=== PATIENT | male | born 1945 | race Caucasian/White ===

== ENCOUNTER 2018-01-13 20:23 | Inpatient (IN) ==
--- NOTE | 2018-01-13 20:42 | Emergency Department Note ---
Disposition Clinical Impression: Confusion Syncope Qualifiers: Syncope type: unspecified Qualified Code(s): R55 - Syncope and collapse Fall Qualifiers: Encounter type: initial encounter Qualified Code(s): W19.XXXA - Unspecified fall, initial encounter Disposition: Admitted As Inpatient Condition: Fair General Adult HPI - General Chief complaint: ED Fall Stated complaint: fall/light headed Time Seen by Provider: 01/13/18 20:36 Source: patient, EMS Nursing Notes Reviewed: Yes Vital Signs Reviewed: Yes - History of Present Illness HPI Narrative: 72-year-old male present emergency department after having syncopal episode at home. The patient's stated reported to EMS that her was acting confused today right before this happened. Patient states he does not remember what happened at all. It was reported that patient hit his head. Patient denies any cough, fevers, chest pain, palpitations. Daughter is at bedside here in the emergency department and states that patient is not at baseline mental status. Pain Scale: 0 - Related Data Home Medications Medication Instructions Recorded Confirmed Aspirin [Lo-Dose Aspirin EC] 81 mg PO DAILY 01/13/18 01/13/18 Latanoprost [Xalatan] 1 drop BOTH EYES HS 01/13/18 01/13/18 Lisinopril-HCTZ 20-12.5 [Prinzide 1 tab PO DAILY 01/13/18 01/13/18 20-12.5] Naproxen Sodium [All Day Pain 220 mg PO DAILY 01/13/18 01/13/18 Relief] Omeprazole [PriLOSEC] 40 mg PO DAILY 01/13/18 01/13/18 Simvastatin [Zocor] 60 mg PO QPM 01/13/18 01/13/18 Triamcinolone Acetonide 1 appl TP BID PRN 01/13/18 01/13/18 Allergies Allergy/AdvReac Type Severity Reaction Status Date / Time No Known Allergies Allergy Verified 01/13/18 20:27 All systems ED: reviewed and negative except as stated. Review of Systems: As Per HPI Constitutional: Denies: fever Cardiovascular: Reports: syncope. Denies: chest pain, palpitations Respiratory: Denies: cough, dyspnea Gastrointestinal: Denies: abdominal pain, nausea, vomiting Genitourinary: Denies: urgency Musculoskeletal: Denies: back pain, neck pain Integumentary: Reports: abrasion Neurological: Reports: confusion. Denies: headache, weakness, numbness, paresthesias Past Medical History - Past Medical History Medical history: Reports: diabetes Psychiatric history: Reports: no psych history - Social History Smoking Status: Current every day smoker Smokeless Tobacco Status: No Alcohol use: Reports: heavy Drug use: Reports: none Physical Exam - General General appearance: alert, other (Patient appears mildly confused.) - Head Head exam: other (Patient has scattered abrasions on the face and forehead) - Eye Eye exam: Present: EOMI - ENT ENT exam: normal exam - Neck Neck exam: Present: trachea midline. Absent: tenderness - Chest Chest inspection: Present: symmetric chest wall rise - Respiratory Respiratory exam: Present: normal lung sounds bilaterally. Absent: respiratory distress, wheezes, stridor - Cardiovascular Cardiovascular exam: Present: regular rate, normal rhythm - Abdominal Exam Abdominal exam: Present: soft, Non-Tender. Absent: distention, guarding, rebound - Extremities Exam Extremities exam: Absent: tenderness - Back Exam Back exam: Present: full ROM. Absent: tenderness - Neurological Exam Neurological exam: Present: alert, CN II-XII intact - Psychiatric Psychiatric exam: Present: normal affect, normal mood - Skin Skin exam: Present: warm. Absent: pallor Course Vital Signs Temperature 98.7 F 01/13/18 20:28 Pulse Rate 86 01/13/18 20:28 Respiratory Rate 16 01/13/18 20:28 Blood Pressure 154/87 01/13/18 20:28 O2 Sat by Pulse Oximetry 98 01/13/18 20:28 Temperature 98.1 F 01/14/18 03:23 Pulse Rate 78 01/14/18 03:23 Respiratory Rate 14 01/14/18 03:23 Blood Pressure 134/70 01/14/18 03:23 O2 Sat by Pulse Oximetry 94 01/14/18 03:23 Oxygen Delivery Oxygen Delivery Room Air Medical Decision Making - MDM Narrative Medical decision making narrative: 72-year-old male presents to the emergency department with syncope in the setting of confusion. Patient fell and hit his head earlier today. Obtained EKG, chest x-ray. EKG does not reveal any evidence of STEMI, Brugada's, [id number]. chest x-ray reveals evidence of bilateral lower lobe airspace disease consistent with atelectasis and chronic appearing interstitial opacities. Due to the patient having a syncopal episode, we obtained a CT angiogram of the chest that was negative for pulmonary embolus. It did reveal bilateral air space disease. Patient had mildly elevated creatinine at 1.38. We do not have a previous creatinine on him. We administered a liter of fluid to help with this. Urine was negative for signs of infection. CT of the head was obtained as patient had fallen. This was negative for signs of hemorrhage. Patient was hemodynamic was stable throughout his stay here. We admitted him to the hospital as patient was not quite baseline according to daughter at bedside. We do not have a true etiology for his confusion and why the patient had a syncopal episode today. Chest X-Ray 01/13/18 20:39 IMPRESSION: 1. No acute process identified. 2. Chronic appearing interstitial opacities present throughout the lungs. D/ / Frank Fregoso MD / Frank Fregoso MD Interpreting Provider: Frank Fregoso MD Head CT 01/13/18 20:40 IMPRESSION: No acute intracranial abnormality. D/ / Roly Phillips MD / Roly Phillips MD Interpreting Provider: Roly Phillips MD Chest CTA 01/13/18 21:24 IMPRESSION: No CT evidence of pulmonary embolism. Emphysema. Mild bilateral lower lobe dependent airspace disease, likely atelectasis. Pneumonia is considered less likely. D/ / Lucia Leblanc Cha, MD / Lucia Leblanc Cha, MD Interpreting Provider: Lucia Leblanc Cha, MD Vital Signs Temperature 98.7 F 01/13/18 20:28 Pulse Rate 86 01/13/18 20:28 Respiratory Rate 16 01/13/18 20:28 Blood Pressure 154/87 01/13/18 20:28 O2 Sat by Pulse Oximetry 98 01/13/18 20:28 Temperature 98.7 F 01/13/18 20:28 Pulse Rate 83 01/13/18 22:45 Respiratory Rate 20 01/13/18 22:45 Blood Pressure 136/82 01/13/18 22:45 O2 Sat by Pulse Oximetry 94 01/13/18 22:45 Oxygen Delivery Oxygen Delivery Room Air - Lab Data Result diagrams: 01/14/18 01:29 01/14/18 01:29 Lab Results 01/13/18 01/13/18 01/13/18 Range/Units 20:39 20:39 20:39 WBC 9.5 (4.3-11.1) K/mcL RBC 4.08 L (4.19-5.50) M/mcL Hgb 13.2 (12.9-16.9) g/dL Hct 38.9 (37.5-50.1) % MCV 95.3 (83.0-100.0) fL MCH 32.4 (28.0-33.3) pg MCHC 33.9 (31.6-35.5) g/dL RDW 13.2 (11.5-14.5) % Plt Count 288 (140-400) K/mcL MPV 9.4 (9.4-12.4) fL Immature Gran % 0.5 (0-4) % Seg Neutrophils % 66.5 % Lymphocytes % 22.4 % Monocytes % 8.6 % Eosinophils % 1.4 % Basophils % 0.6 % Neutrophils # 6.3 (1.6-8.9) K/mcL Lymphocytes # 2.1 (0.6-4.6) K/mcL Monocytes # 0.8 (0.0-1.3) K/mcL Eosinophils # 0.1 (0.0-0.6) K/mcL Basophils # 0.1 (0.0-0.2) K/mcL D-Dimer (0-500) ng/mLFEU Sodium 137 (136-145) mEq/L Potassium 4.0 (3.5-5.1) mEq/L Chloride 105 (98-107) mEq/L Carbon Dioxide 23 (23-29) mEq/L BUN 20 (8-23) mg/dL Creatinine 1.37 H (0.70-1.30) mg/dL Est GFR ( Amer) > 60 (> 60) Est GFR (Non-Af Amer) 51 L (> 60) BUN/Creatinine Ratio 15 (6-26) Glucose 165 H (70-105) mg/dL Calculated Osmolality 290 (280-300) Calcium 9.5 (8.6-10.3) mg/dL Troponin I < 0.03 (< 0.04) ng/mL B-Natriuretic Peptide 51 (Less than 100) pg/mL Urine Color (Yellow) Urine Clarity (Clear) Urine pH (5.0-8.0) pH Units Ur Specific Ulysses (1.010-1.025) Urine Protein (Neg-Trace) mg/dL Urine Glucose (UA) (Normal) mg/dL Urine Ketones (Negative) mg/dL Urine Blood (Negative) Urine Nitrite (Negative) Urine Bilirubin (Negative) Urine Urobilinogen (Normal) mg/dL Ur Leukocyte Esterase (Negative) Urine Microscopic RBC (0-3) per hpf Urine Microscopic WBC (0-3) per hpf Ur Squamous Epith Cells (None-Few) per lpf Urine Bacteria (None-Few) per hpf Hyaline Casts (None-Few) per lpf Ur Culture Indicated? (NO) 01/13/18 01/13/18 Range/Units 20:42 21:12 WBC (4.3-11.1) K/mcL RBC (4.19-5.50) M/mcL Hgb (12.9-16.9) g/dL Hct (37.5-50.1) % MCV (83.0-100.0) fL MCH (28.0-33.3) pg MCHC (31.6-35.5) g/dL RDW (11.5-14.5) % Plt Count (140-400) K/mcL MPV (9.4-12.4) fL Immature Gran % (0-4) % Seg Neutrophils % % Lymphocytes % % Monocytes % % Eosinophils % % Basophils % % Neutrophils # (1.6-8.9) K/mcL Lymphocytes # (0.6-4.6) K/mcL Monocytes # (0.0-1.3) K/mcL Eosinophils # (0.0-0.6) K/mcL Basophils # (0.0-0.2) K/mcL D-Dimer 3624 H (0-500) ng/mLFEU Sodium (136-145) mEq/L Potassium (3.5-5.1) mEq/L Chloride (98-107) mEq/L Carbon Dioxide (23-29) mEq/L BUN (8-23) mg/dL Creatinine (0.70-1.30) mg/dL Est GFR ( Amer) (> 60) Est GFR (Non-Af Amer) (> 60) BUN/Creatinine Ratio (6-26) Glucose (70-105) mg/dL Calculated Osmolality (280-300) Calcium (8.6-10.3) mg/dL Troponin I (< 0.04) ng/mL B-Natriuretic Peptide (Less than 100) pg/mL Urine Color Yellow (Yellow) Urine Clarity Clear (Clear) Urine pH 6.5 (5.0-8.0) pH Units Ur Specific [place]es 1.011 (1.010-1.025) Urine Protein Trace (Neg-Trace) mg/dL Urine Glucose (UA) Normal (Normal) mg/dL Urine Ketones Negative (Negative) mg/dL Urine Blood Negative (Negative) Urine Nitrite Negative (Negative) Urine Bilirubin Negative (Negative) Urine Urobilinogen Normal (Normal) mg/dL Ur Leukocyte Esterase Negative (Negative) Urine Microscopic RBC 0-3 (0-3) per hpf Urine Microscopic WBC 0-3 (0-3) per hpf Ur Squamous Epith Cells None Seen (None-Few) per lpf Urine Bacteria None Seen (None-Few) per hpf Hyaline Casts None Seen (None-Few) per lpf Ur Culture Indicated? NO (NO) Attestation Statement - Attestation Attestation: I examined this patient and my medical decision-making was reviewed with the Resident Physician. I agree with the documented findings, disposition and treatment plan as described except to the extent set forth below. Patient had syncope, lightheadedness. CT scan of the head as well as the chest shows no acute findings. No metabolic derangement identified. The patient does have some transient confusion we will admit for further management of confusion in the setting of syncope.
[2018-01-13 20:56] LABS: Basophils # 0.1 K/mcL (0.0-0.2); Basophils % 0.6 %; Eosinophils # 0.1 K/mcL (0.0-0.6); Eosinophils % 1.4 %; Hematocrit 38.9 % (37.5-50.1); Hemoglobin 13.2 g/dL (12.9-16.9); Immature Granulocytes % 0.5 % (0-4); Lymphocytes # 2.1 K/mcL (0.6-4.6); Lymphocytes % 22.4 %; Mean Corpuscular HGB Conc 33.9 g/dL (31.6-35.5); Mean Corpuscular Hemoglobin 32.4 pg (28.0-33.3); Mean Corpuscular Volume 95.3 fL (83.0-100.0); Mean Platelet Volume 9.4 fL (9.4-12.4); Monocytes # 0.8 K/mcL (0.0-1.3); Monocytes % 8.6 %; Neutrophils # 6.3 K/mcL (1.6-8.9); Platelet Count 288 K/mcL (140-400); Red Blood Count 4.08 M/mcL (4.19-5.50); Red Cell Distribution Width 13.2 % (11.5-14.5); Segmented Neutrophils % 66.5 %
[2018-01-13 21:17] LABS: BUN/Creatinine Ratio 15 (6-26); Blood Urea Nitrogen 20 mg/dL (8-23); Calcium 9.5 mg/dL (8.6-10.3); Carbon Dioxide 23 mEq/L (23-29); Chloride 105 mEq/L (98-107); Glucose 165 mg/dL (70-105); Osmolality,Calculated 290 (280-300); Sodium 137 mEq/L (136-145); Troponin I < 0.03 ng/mL (< 0.04); eGFR For African Americans > 60 (> 60); eGFR For Non-African Americans 51 (> 60)
[2018-01-13 21:23] LABS: Bilirubin,Urine Negative (Negative); Blood,Urine Negative (Negative); Clarity,Urine Clear (Clear); Color,Urine Yellow (Yellow); Glucose,Urine (UA) Normal (Normal); Ketones,Urine Negative (Negative); Leukocyte Esterase,Urine Negative (Negative); Nitrite,Urine Negative (Negative); PH,Urine 6.5 pH Units (5.0-8.0); Protein,Urine Trace mg/dL (Neg-Trace); Specific Gravity,Urine 1.011 (1.010-1.025); Urobilinogen,Urine Normal (Normal)
[2018-01-13] MEDS ORDERED: Isovue-370 500 ML INFUS..BTL IV ONE (21:24)
[2018-01-13 21:25] LABS: Bacteria,Urine None Seen per hpf (None-Few); Hyaline Casts,Urine None Seen per lpf (None-Few); RBC,Urine 0-3 per hpf (0-3); Squamous Epithelial Cell,Urine None Seen per lpf (None-Few); WBC,Urine 0-3 per hpf (0-3)
[2018-01-13] MEDS ORDERED: 0.9 % Sodium Chloride 1,000 ML IVC ONE (23:24)
--- NOTE | 2018-01-14 01:00 | Internal Med History&Physical ---
<Yaw Ac - Last Filed: 01/14/18 01:38> Date of Encounter: 01/14/18 Time of Encounter: 00:58 Internal Medicine - H&P: HPI Chief complaint: fall Admitted From: Home Plans for Post Hospital Care: Home History of present illness: Mr. Deluca is a 72 year old male w/ pmh of htn, hld, GERD, smoker, light etoh use presents confusion, LOC, and trauma to the head. Patient had 2 episodes today where he stood up, walked to the kitchen, became dizzy, LoC, and fell. Unknown how long patient loc. Patient hit his face on one of the falls. Patient has never had episodes like this in the past. He does not remember fully what occurred prior or post fall. He did not bite his tongue or lose urine control. He does admit to feeling more confused recently and for the last 2 years patient has had SOB on exertion which has been progressing. Patient has not been seen by a physician for this workup. Patient also admits to trouble urinating. He feels urges to urinate but can't always urinate, and sometimes dribbles urine. Patient denies blood or darkening of stool, nausea, vomiting, chest pain, orthopnea, pnd, edema, fever, chills. patient does admit to blurry vision intermittently throughtout the day. Past Med Surg Social Fam HX - Past Medical History Medical history: diabetes, hyperlipidemia, hypertension Psychiatric history: no psych history - Social History Smoking Status: Current every day smoker Packs per day: 1/2 Smokeless Tobacco Status: No Alcohol use: heavy Drug use: none - Family History Daughter Name: Zoë Family Member Ethnicity: Non- Living Status: Still Living Hx Family Cardiac Disorders: No Hx Family Respiratory Disorders: No Hx Family Cancer: No Hx Family GI Disorders: No Hx Family Genitourinary Disorders: No Hx Family Endocrine Disorder: No Hx Family Musculoskeletal Disorders: No Hx Family Neuromuscular Disorders: No Hx Family Neurologic Disorders: No Hx Family HEENT Disorders: No Hx Family Autoimmune Disorders: No Hx Family Reproductive Disorders: No Hx Family Psychosocial Disorders: No Hx Family Medical Disorders: No Internal Medicine - H&P: Meds Aspirin [Lo-Dose Aspirin EC] 81 mg PO DAILY 01/13/18 [History] Latanoprost [Xalatan] 1 drop BOTH EYES HS 01/13/18 [History] Lisinopril-HCTZ 20-12.5 [Prinzide 20-12.5] 1 tab PO DAILY 01/13/18 [History] Naproxen Sodium [All Day Pain Relief] 220 mg PO DAILY 01/13/18 [History] Omeprazole [PriLOSEC] 40 mg PO DAILY 01/13/18 [History] Simvastatin [Zocor] 60 mg PO QPM 01/13/18 [History] Triamcinolone Acetonide 1 appl TP BID PRN 01/13/18 [History] 3 Allergy/AdvReac Type Severity Reaction Status Date / Time No Known Allergies Allergy Verified 01/13/18 20:27 All Systems PM: A 10-system review of systems was performed and is negative for pertinent findings except as documented above in the HPI. - Constitutional Constitutional: falls, weakness, no anorexia, no chills, no excessive sweating, no fatigue, no fever(s), no lethargy, no malaise, no night sweats - EENT Eyes: blurry vision, no change in vision, no discharge, no pain, no photophobia Ears: no ear discharge, no ear pain, no tinnitus Nose, mouth and throat: no dysphagia, no nasal discharge, no neck pain, no sore throat - Cardiovascular Cardiovascular ROS IM: dyspnea on exertion, no chest pain, no claudication, no diaphoresis, no dyspnea, no edema, no irregular heart rhythm, no lightheadedness , no orthopnea, no palpitations, no paroxysmal nocturnal dyspnea, no syncope - Respiratory Respiratory: no cough, no dyspnea, no wheezing, no excessive phlegm production - Gastrointestinal Gastrointestinal: no abdominal pain, no change in bowel habits, no coffee ground emesis, no constipation, no cramping, no diarrhea, no dyspepsia, no dysphagia, no early satiety, no excessive flatus, no fecal incontinence, no hematemesis, no hematochezia, no melena, no nausea, no vomiting - Genitourinary Genitourinary ROS male: dysuria, post void dribbling, urinary urgency, no flank pain, no hematuria, no nocturia, no penile discharge, no urinary frequency - Musculoskeletal Musculoskeletal ROS IM: no numbness, no tingling - Integumentary Integumentary IM: no rash, no unusual bruising - Neurological Neurological ROS: disequilibrium, dizziness, lack of coordination, weakness, no confusion, no convulsions, no focal weakness, no frequent falls, no headache(s) , no numbness, no tingling, no tremor(s) - Hematologic/Lymphatic Hematologic/Lymphatic: no easy bruising - Constitutional Vitals: Temp Pulse Resp BP Pulse Ox 98.7 F 83 12 156/94 94 01/13/18 20:28 01/13/18 22:45 01/14/18 00:20 01/14/18 00:20 01/13/18 22:45 General appearance: Present: cooperative, A&O X 3, pleasant, no acute distress, answers questions appropriately - Head Head exam: Present: atraumatic, normocephalic - Eye Eye exam: Present: PERRL, conjuntiva pink, sclera anicteric Pupils: Present: PERRL - Neck Neck exam general surgery: Present: supple, trachea midline. Absent: lymphadenopathy, nuchal rigidity, thyromegaly - Respiratory Respiratory exam: Present: decreased breath sounds. Absent: accessory muscle use, chest wall tenderness, rales, rhonchi, wheezes - Cardiovascular Cardiovascular exam: Present: RRR. Absent: diastolic murmur, gallop, irregular rhythm, JVD, rubs, +S3, systolic murmur, tachycardia - GI/Abdominal GI/Abdominal exam: Present: normal bowel sounds, soft, no peritoneal signs. Absent: distended, firm, guarding, rebound, rigid, splenomegaly, tenderness - Extremities Exam Extremities exam: Present: warm, radial pulses palpable and symmetrical. Absent : calf tenderness, cyanotic, pedal edema - Neurological Exam Neurological exam: Present: alert, CN II-XII intact, oriented X3, reflexes normal, no focal deficits, strengths equal and symetr throughout. Absent: altered, motor sensory deficit, pronater drift, facial droop, speech deficit - Skin Skin exam: Present: dry, intact Internal Med - H&P Results - Labs CBC & Chem 7: 01/13/18 20:39 01/13/18 20:39 - Assessment and plan (1) SOB (shortness of breath) on exertion Current Visit: Yes Status: Acute Assessment and plan: chronic, SOB on exertion for the last 2 years. Patient to have follow up PFT outpatient. - respiratory support as needed. - continuous pulse O2 (2) Dysuria Current Visit: Yes Status: Acute Assessment and plan: Patient has hx of dysuria. - strict I/O - low threshold for schwartz cath placement - consider urology consult (3) Confusion Current Visit: Yes Status: Acute Assessment and plan: Patient could not recall events of fall, unsure if patient lost consciousness. In ED, patient had CTA negative for PE, Head CT negative for brain hemorrhage, and CXR that showed no acute processes. - orthostatics - echo, carotid duplex - pending - morning labs/electrolytes, tsh, trend trops - pending - CIWA protocol (4) Fall Current Visit: Yes Status: Acute Assessment and plan: CT head negative for hemorrhage - serial neuro evals Qualifiers: Encounter type: initial encounter Qualified Code(s): W19.XXXA - Unspecified fall, initial encounter (5) Syncope Current Visit: Yes Status: Acute Assessment and plan: see above Qualifiers: Syncope type: unspecified Qualified Code(s): R55 - Syncope and collapse (6) DVT prophylaxis Current Visit: Yes Status: Acute Assessment and plan: sq heparin (7) Hypertension Current Visit: Yes Status: Acute Assessment and plan: continue home rx Qualifiers: Qualified Code(s): I10 - Essential (primary) hypertension (8) Hyperlipidemia Current Visit: Yes Status: Acute Assessment and plan: continue home rx Qualifiers: Qualified Code(s): E78.5 - Hyperlipidemia, unspecified (9) ETOH abuse Current Visit: Yes Status: Acute Assessment and plan: heavy previous use, unclear of current amount of usage. - CIWA protocol (10) Tobacco abuse Current Visit: Yes Status: Acute Assessment and plan: current everyday smoker. Counseled patient on cessation. (11) Goals of care, counseling/discussion Current Visit: Yes Status: Acute Assessment and plan: Patient stated "well when it's time to go,it's time to go. but i haven't really thought about it." Discussion was started with daughter in room. Patient is full code now, but would like to rediscuss tomorrow. - Time Spent With Patient Total time spent is greater than 50% in coordination of care (as documented) at patient's floor/unit and/or counseling patient: <Jordy Roblero - Last Filed: 01/14/18 04:11> Date of Encounter: 01/14/18 Internal Medicine - H&P: HPI History of present illness: Mr. Deluca is a 72 year old male All Systems PM: A 10-system review of systems was performed and is negative for pertinent findings except as documented above in the HPI. - Constitutional Vitals: Temp Pulse Resp BP Pulse Ox 98.1 F 78 14 134/70 94 01/14/18 03:23 01/14/18 03:23 01/14/18 03:23 01/14/18 03:23 01/14/18 03:23 Internal Med - H&P Results - Labs CBC & Chem 7: 01/14/18 01:29 01/14/18 01:29 Labs: Short CBC 01/14/18 Range/Units 01:29 WBC 11.2 H (4.3-11.1) K/mcL Hgb 13.1 (12.9-16.9) g/dL Hct 37.3 L (37.5-50.1) % Plt Count 279 (140-400) K/mcL Neutrophils # 8.5 (1.6-8.9) K/mcL BMP 01/14/18 01:29 Sodium 139 Potassium 4.1 Chloride 109 H Carbon Dioxide 23 BUN 19 Creatinine 1.22 Glucose 116 H Calcium 9.1 Cardiac Enzymes 01/14/18 Range/Units 01:29 Troponin I < 0.03 (< 0.04) ng/mL Liver Function 01/14/18 Range/Units 01:29 Total Bilirubin 0.7 (0.3-1.0) mg/dL AST 15 (13-39) Units/L ALT 10 (7-52) Units/L Alkaline Phosphatase 56 (34-104) Units/L Albumin 3.8 (3.5-5.7) g/dL - Attending Attestation I saw, examined, and evaluated the patient. I discussed with resident and agree with resident's findings and plan as documented in the resident's note. Briefly, patient admitted for syncope workup. He had syncopal episode at home earlier today with possible trauma to head and questionable LOC. He is alert and oriented during my exam, but has some confusion. CT head in ED negative for bleed or other process. We will admit as inpatient and watch closely with serial neurochecks, ECHO, carotid U/S, and orthostatics. - Assessment and plan (1) Syncope Current Visit: Yes Status: Acute Qualifiers: Syncope type: unspecified Qualified Code(s): R55 - Syncope and collapse (2) Confusion Current Visit: Yes Status: Acute (3) Fall Current Visit: Yes Status: Acute Qualifiers: Encounter type: initial encounter Qualified Code(s): W19.XXXA - Unspecified fall, initial encounter (4) SOB (shortness of breath) on exertion Current Visit: Yes Status: Acute (5) Dysuria Current Visit: Yes Status: Acute (6) DVT prophylaxis Current Visit: Yes Status: Acute (7) Hypertension Current Visit: Yes Status: Acute Qualifiers: Qualified Code(s): I10 - Essential (primary) hypertension (8) Hyperlipidemia Current Visit: Yes Status: Acute Qualifiers: Qualified Code(s): E78.5 - Hyperlipidemia, unspecified (9) ETOH abuse Current Visit: Yes Status: Acute (10) Tobacco abuse Current Visit: Yes Status: Acute (11) Goals of care, counseling/discussion Current Visit: Yes Status: Acute - Time Spent With Patient Total time spent is greater than 50% in coordination of care (as documented) at patient's floor/unit and/or counseling patient:
[2018-01-14] MEDS ORDERED: Naloxone 0.4 MG/ML INJ IVP PRN (01:07)
[2018-01-14] MEDS ORDERED: *HR* LORazepam 2 MG/ML VIAL IVP PRN (01:40)
[2018-01-14] MEDS ORDERED: Triamcinolone Acet 0.1% CRM 15 GM TUBE TP PRN (01:44)
[2018-01-14 01:51] LABS: Basophils # 0.1 K/mcL (0.0-0.2); Basophils % 0.4 %; Eosinophils # 0.1 K/mcL (0.0-0.6); Eosinophils % 0.8 %; Hematocrit 37.3 % (37.5-50.1); Hemoglobin 13.1 g/dL (12.9-16.9); Immature Granulocytes % 0.4 % (0-4); Lymphocytes # 1.6 K/mcL (0.6-4.6); Lymphocytes % 14.4 %; Mean Corpuscular HGB Conc 35.1 g/dL (31.6-35.5); Mean Corpuscular Hemoglobin 33.9 pg (28.0-33.3); Mean Corpuscular Volume 96.4 fL (83.0-100.0); Mean Platelet Volume 9.4 fL (9.4-12.4); Monocytes # 0.9 K/mcL (0.0-1.3); Monocytes % 7.6 %; Neutrophils # 8.5 K/mcL (1.6-8.9); Platelet Count 279 K/mcL (140-400); Red Blood Count 3.87 M/mcL (4.19-5.50); Red Cell Distribution Width 13.2 % (11.5-14.5); Segmented Neutrophils % 76.4 %
[2018-01-14 02:04] LABS: Prothrombin Time 11.1 Seconds (9.4-12.1)
[2018-01-14 02:06] LABS: Activated Partial Thrombo Time 29.7 Seconds (26.0-36.0)
[2018-01-14 02:10] LABS: Alanine Aminotransferase 10 Units/L (7-52); Albumin 3.8 g/dL (3.5-5.7); Albumin/Globulin Ratio 1.4 (1.1-2.2); Alkaline Phosphatase 56 Units/L (34-104); Aspartate Amino Transferase 15 Units/L (13-39); BUN/Creatinine Ratio 16 (6-26); Bilirubin,Total 0.7 mg/dL (0.3-1.0); Blood Urea Nitrogen 19 mg/dL (8-23); Calcium 9.1 mg/dL (8.6-10.3); Carbon Dioxide 23 mEq/L (23-29); Chloride 109 mEq/L (98-107); Chol/HDL Ratio 3.9 (0-4.9); Cholesterol 159 mg/dL (< 200); Globulin 2.7 g/dL (2.4-3.5); Glucose 116 mg/dL (70-105); HDL Cholesterol 41 mg/dL (40-59); LDL Cholesterol,Calculated 103 mg/dL (0-99); Magnesium 1.9 mg/dL (1.6-2.6); Osmolality,Calculated 291 (280-300); Phosphorous 3.4 mg/dL (2.7-4.5); Potassium 4.1 mEq/L (3.5-5.1); Sodium 139 mEq/L (136-145); Total Protein 6.5 g/dL (6.4-8.9); Triglycerides 77 mg/dL (< 150); eGFR For African Americans > 60 (> 60); eGFR For Non-African Americans 58 (> 60)
[2018-01-14 02:22] LABS: Thyroid Stimulating Hormone 2.051 mcIU/mL (0.340-5.600)
[2018-01-14] MEDS: *HR* Heparin 5,000 UNIT/ML VIAL SQ SCH ×2 (06:07→16:30)
[2018-01-14] MEDS: Lisinopril-HCTZ 20-12.5mg TABLET PO SCH (07:38)
[2018-01-14] MEDS: Aspirin Enteric Coated 81 MG Tablet PO SCH (07:38)
[2018-01-14 10:29] LABS: Estimated Average Glucose 140 mg/dl; Hemoglobin A1C 6.5 %
[2018-01-14 17:48] LABS: Amphetamine Screen,Urine Negative ng/mL (Cutoff=1000); Barbiturate Screen,Urine Negative ng/mL (Cutoff=200); Benzodiazepines Screen,Urine Negative ng/mL (Cutoff=200); Cannabinoid Screen,Urine Negative ng/mL (Cutoff = 50); Cocaine Screen,Urine Negative ng/mL (Cutoff= 300); Opiate Screen,Urine Negative ng/mL (Cutoff=300); Phencyclidine Screen,Urine Negative ng/mL (Cutoff=25)
[2018-01-14] MEDS ORDERED: Latanoprost 2.5 ML BOTTLE BOTH EYES SCH (21:00)
[2018-01-15] MEDS: *HR* Heparin 5,000 UNIT/ML VIAL SQ SCH (05:53)
[2018-01-15] MEDS ORDERED: Dextrose Gel 15 GM/37.5 ML TUBE PO PRN ×2 (08:11)
[2018-01-15] MEDS ORDERED: D5% in Water 1,000 ML IVC PRN (08:11)
[2018-01-15] MEDS ORDERED: *HR* Dextrose 50 % in Water (Syg) 50 ML SYRINGE IVP PRN (08:11)
[2018-01-15] MEDS: Aspirin Enteric Coated 81 MG Tablet PO SCH (08:18)
[2018-01-15] MEDS: Lisinopril-HCTZ 20-12.5mg TABLET PO SCH (08:18)
[2018-01-15] MEDS: Insulin LISPRO 300 UNITS/3 ML VIAL SQ SCH ×2 (08:22→11:57)
[2018-01-15 09:55] VITALS: BP 128/81
--- NOTE | 2018-01-15 15:03 | Discharge Summary ---
- NOTES TO OUTPATIENT PROVIDER Notes to Outpatient Provider: Syncope, likely dehydration and heat Date of Encounter: 01/15/18 Time of Encounter: 15:01 - Discharge Diagnosis (1) Syncope Priority: Primary Status: Acute Qualifiers: Syncope type: heat syncope Encounter type: initial encounter Qualified Code(s): T67.1XXA - Heat syncope, initial encounter (2) Fall Priority: Primary Status: Acute Qualifiers: Encounter type: initial encounter Qualified Code(s): W19.XXXA - Unspecified fall, initial encounter (3) Hypertension Priority: Secondary Status: Chronic Qualifiers: Hypertension type: essential hypertension Qualified Code(s): I10 - Essential (primary) hypertension (4) Hyperlipidemia Priority: Secondary Status: Chronic Qualifiers: Hyperlipidemia type: unspecified Qualified Code(s): E78.5 - Hyperlipidemia , unspecified (5) Tobacco abuse Priority: Secondary Status: Chronic (6) Diabetes mellitus Priority: Secondary Status: Chronic Qualifiers: Diabetes mellitus type: type 2 Diabetes mellitus long-term insulin use: without superintendent terminal use Diabetes mellitus complication status: with unspecified complications Qualified Code(s): E11.8 - Type 2 diabetes mellitus with unspecified complications Hospital course: Mr. Deluca is a 72 year old male with the above medical problems, who was admitted with syncope and fall. Initial labs and chest x-ray and EKG showed no acute abnormality, except elevated d-dimer. CT angiogram of chest showed no PE or infectious process. Serial troponins remained negative. No orthostatic hypotension was noted. CT head showed no acute abnormality. Echocardiogram showed 55% ejection fraction, mild LV diastolic dysfunction. Bilateral carotid Doppler showed nonstenotic plaques. Telemetry monitoring remained uneventful. Physical and occupational therapy evaluation determined no needs. Patient is currently medically stable for discharge with outpatient follow-up. Plan of care has been explained to his daughter at bedside, who is in agreement. Syncope is likely from dehydration and heat exposure. Discharge discussed with: patient, family - Time Spent with Patient Total time spent providing and/or coordinating discharge services: Greater than 30 minutes (40 min) - Discharge Medications Home Medications: Aspirin [Lo-Dose Aspirin EC] 81 mg PO DAILY 01/13/18 [History] Lisinopril-HCTZ 20-12.5 [Prinzide 20-12.5] 1 tab PO DAILY 01/13/18 [History] Naproxen Sodium [All Day Pain Relief] 220 mg PO DAILY 01/13/18 [History] Omeprazole [PriLOSEC] 40 mg PO DAILY 01/13/18 [History] Simvastatin [Zocor] 60 mg PO QPM 01/13/18 [History] Triamcinolone Acetonide 1 appl TP BID PRN 01/13/18 [History] Allergies/Adverse Reactions: 3 Allergy/AdvReac Type Severity Reaction Status Date / Time No Known Allergies Allergy Verified 01/13/18 20:27 Date of admission: 01/14/18 01:07 [facility] care physician: [facility] Consults: 01/14/18 01:40 Consult to Superannuation Clerk [CONS] Routine Reason for Consult: etoh use Discharging clinician: Jennie Fraire Anticipated date of discharge: 01/15/18 - Constitutional Vitals: Temp Pulse Resp BP Pulse Ox 98.4 F 73 16 128/81 96 01/15/18 09:45 01/15/18 09:45 01/15/18 09:45 01/15/18 09:45 01/15/18 09:45 General appearance: Present: cooperative, A&O X 3, answers questions appropriately - Cardiovascular Cardiovascular exam: Present: RRR, +S1, +S2. Absent: diastolic murmur, gallop, rubs, systolic murmur - Patient Status Disposition: Home, Self-Care Condition: Good Functional capacity at discharge: independent ambulation Overall status at discharge: patient is progressing back to baseline - Discharge Instructions Follow Up With: [facility],PCP [Primary Care Provider] - Additional Instructions: F/up with PCP in 1-2 weeks - Diet and Activity Activity: resume usual activities as tolerated Diet: diabetic diet, low fat, low cholesterol, low salt diet - VTE Documentation of Mechanical Device: Intermittent pneumatic compression device
[2018-01-15] MEDS ORDERED: Insulin LISPRO 300 UNITS/3 ML VIAL SQ SCH (21:00)
--- NOTE | 2018-01-15 22:54 | Electrocardiograph Report ---
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
--- NOTE | 2018-01-15 22:58 | Electrocardiograph Report ---
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
== END 2018-01-15 15:35 | disposition home or self-care (01) | DRG 923 ==
LOC: 3NENU 20:23 → EMEROO 20:23 → 3NENU 01-14 00:27 → SUATTDRO 01-14 01:07
PROVIDERS: ADMIT Internal Medicine; ATTEND Internal Medicine

== ENCOUNTER 2018-04-15 09:45 | Inpatient (IN) ==
[~2018-04-15 09:45] MED LIST: Vancomycin 1,000 MG, Sodium Chloride IRRigation 1,000 ML IR ONE
--- NOTE | 2018-04-15 09:47 | Anesthesia Evaluation PreOp ---
Date of Encounter: 04/15/18 Time of Encounter: 10:48 - Past History Planned Operation: Endo-AAA Repair Cardiac History: HTN, Hyperlipidemia Pulmonary History: Smoker (50 years) MANAGEMENT ADVISOR History: Denies Any Significant HX Other Medical History: Diabetes Type II (diet controlled), GERD Anesthesia History: Past Anesthesia (no prior surgery) Alcohol Use: heavy Drug use: none Medications and Allergies Aspirin [Lo-Dose Aspirin EC] 81 mg PO DAILY 01/13/18 [History] Lisinopril-HCTZ 20-12.5 [Prinzide 20-12.5] 1 tab PO DAILY 01/13/18 [History] Naproxen Sodium [All Day Pain Relief] 220 mg PO DAILY 01/13/18 [History] Omeprazole [PriLOSEC] 40 mg PO DAILY 01/13/18 [History] Simvastatin [Zocor] 60 mg PO QPM 01/13/18 [History] 3 Allergy/AdvReac Type Severity Reaction Status Date / Time No Known Allergies Allergy Verified 04/15/18 10:44 - Meds/Allergy Pre-op Review Medications Reviewed: Yes Allergies Reviewed: Yes Beta Blockers on Current Med List: No Anesthesia Results - Labs Laboratory Tests 04/13/18 04/13/18 04/13/18 17:38 17:38 17:38 WBC 6.4 Hgb 12.8 L Hct 38.1 Plt Count 255 PT 11.3 INR 1.0 APTT 31.1 Sodium 140 Potassium 4.0 BUN 15 Creatinine 1.06 - Imaging EKG: report reviewed (01/14/2018 ATRIAL FLUTTER INTRAVENTRICULAR CONDUCTION DELAY ) Additional studies: 04/13/2018 Stress Impression: Pharmacologic stress ECG is negative for ischemia at level of heart rate achieved. Gated EF = 67%. Perfusion imaging was negative for ischemia or infarct. Findings: Stress Note * Resting ECG demonstrated normal sinus rhythm. * No baseline arrhythmias were noted. * Pharmacologic stress ECG is negative for ischemia at level of heart rate achieved. * No arrhythmias were noted during stress. * Patient had no chest pain during stress. Hemodynamic responses * Normal hemodynamic responses to pharmacologic stress. Study Quality * Study quality is average. Gated EF % * Gated EF = 67%. Left Ventricle * LVEDV = 135 mL. NORMALS * Normal wall motion. Inferior Perfusion Rest * The basal inferolateral segment shows a moderate reduction in perfusion. Compared to stress, perfusion is worse on rest imaging, which is consistent with artifact. Inferior Perfusion Stress * The basal inferolateral segment shows a mild reduction in perfusion. TID * No evidence of transient ischemic dilatation. TID ratio * TID ratio = 1.22. Lung Uptake * There is no evidence of increase lung uptake. 01/14/2018 Echo Impressions: LVEF 55%. Normal LV chamber size and function. Mild concentric left ventricular hypertrophy. Mild left ventricular diastolic dysfunction. Atypical septal motion consistent with bundle branch block. Mildly dilated right ventricle with normal function. No evidence of pulmonary hypertension. No significant valvular dysfunction. Anesthesia Exam O2 Sat Height 1.75 m Height 1.75 m Weight 83.915 kg Weight 83.915 kg O2 Sat by Pulse Oximetry 99 Vital Signs Temp Pulse Resp BP Pulse Ox 97.6 F 84 18 143/80 99 04/15/18 10:08 04/15/18 10:08 04/15/18 10:08 04/15/18 10:08 04/15/18 10:08 Blood Glucose* 116 Height: 5'9'' Weight: 185 lbs NPO (# of Hours): 8 Pain Scale: 0 Pain Scale Used: Numeric (1 - 10) - HEENT Pupil (Motor): EOMI Mallampati: II Teeth: Prosthesis Oral Opening: Greater than 3 - MANAGEMENT ADVISOR LOC: Oriented MANAGEMENT ADVISOR Motor: Normal RUE, Normal LUE, Normal RLE, Normal LLE, Normal Face MANAGEMENT ADVISOR Sensory: Normal: RUE, LUE, RLE, LLE, Face - Cardiac Rhythm: Regular Murmur: None - Pulmonary Breath Sounds: bilateral Clear Respiratory Effort: Symmetrical Anesthesia Assess/Plan ASA Score: 3 Modified [place] Scale for Level of Consciousness: Cooperative, oriented, and tranquil Anesthetic Plan: General Monitoring Plan: Standard Monitors, A-Line Recovery Plan: PACU
[2018-04-15] MEDS ORDERED: Dexamethasone 4 MG/ML VIAL ONE (10:01)
[2018-04-15] MEDS ORDERED: Ondansetron 4 MG/2 ML VIAL ONE (10:01)
[2018-04-15] MEDS ORDERED: *HR* Succinylcholine 200 MG/10 ML VIAL IVP ONE (10:01)
[2018-04-15] MEDS ORDERED: Lidocaine -MPF 2% 2 ML VIAL ONE ×2 (10:01→13:28)
[2018-04-15] MEDS ORDERED: Lidocaine -MPF 4% 5 ML AMPUL ONE (10:01)
[2018-04-15] MEDS ORDERED: *HR* Propofol 200 MG/20 ML VIAL IVP ONE ×2 (10:02→13:12)
[2018-04-15] MEDS ORDERED: *HR* FentaNYL (PF) 100 MCG/2 ML VIAL ONE (10:02)
[2018-04-15] MEDS ORDERED: *HR* Remifentanil 1 MG VIAL IVP ONE (10:02)
[2018-04-15] MEDS ORDERED: *HR* Phenylephrine 10 MG/ML VIAL ONE (10:04)
[2018-04-15] MEDS ORDERED: CeFAZolin Syr 2,000MG/20 ML 2,000 MG/20 ML SYRINGE IVPB ONE (10:31)
[2018-04-15] MEDS ORDERED: Albuterol 2.5 MG/3 ML NEBULIZER ONE (10:35)
[2018-04-15] MEDS ORDERED: Albuterol 2.5 MG/3 ML NEBULIZER IH ONE (10:57)
[2018-04-15] MEDS ORDERED: Ringers Solution, Lactated 1,000 ML IVC SCH (11:00)
[2018-04-15] MEDS ORDERED: Heparin 1,000 UNITS/500 mL 500 ML ONE (11:01)
[2018-04-15] MEDS ORDERED: Lidocaine -MPF 1% 5 ML AMPUL ONE (11:01)
--- NOTE | 2018-04-15 11:20 | History & Physical Report ---
Date of Encounter: 04/15/18 Time of Encounter: 11:15 24 Hour HP Update - Instructions Instructions: If the History and Physical is less than 30 days old and was completed prior to A.M. admission and or procedure and has NOT been updated on calendar day of procedure please complete this update prior to performing procedure. - Update Patient reports changes in Medical Condition: No Changes in examination, assessment, or condition: No Changes in Medication: No Preop tests/diagnostics Reviewed: Yes Surgery Remains Indicated: Yes Consent for Planned Operative Procedure(s) Verified: Yes - Pre-Operative Checklist Preoperative Checklist Indicated: Yes Prophylactic Antibiotic Ordered: Yes (vancomycin due to risk of MRSA) Home Medications Include Beta Luly: No Beta Luly Taken Today (Day of Surgery): No Beta Luly Taken Yesterday (Day Prior to Surgery): No Is VTE Prophylaxis Indicated?: Yes
[2018-04-15] MEDS ORDERED: Heparin 1,000 UNITS/500 mL 1,500 ML ONE (11:30)
[2018-04-15] MEDS ORDERED: Isovue-300 50 ML VIAL IVP ONE (11:32)
[2018-04-15] MEDS ORDERED: *HR* Rocuronium Bromide 50 MG/5 ML VIAL ONE (12:22)
[2018-04-15] MEDS ORDERED: EPHEDrine 50 MG/ML VIAL ONE (12:41)
[2018-04-15] MEDS ORDERED: *HR* Labetalol 20 MG/4 ML SYRINGE IVP PRN ×2 (13:05→16:45)
[2018-04-15] MEDS ORDERED: *HR* Promethazine 25 MG/ML VIAL IVP PRN (13:05)
[2018-04-15] MEDS ORDERED: *HR* Meperidine 25 MG/ML SYRINGE IVP PRN (13:05)
[2018-04-15] MEDS ORDERED: *HR* OxyCODONE Immed Rel 5 MG TABLET PO PRN ×2 (13:05→16:45)
[2018-04-15] MEDS ORDERED: Ondansetron 4 MG/2 ML VIAL IVP ONE (13:05)
[2018-04-15] MEDS ORDERED: *HR* Heparin 5,000 UNIT/ML VIAL ONE ×2 (13:27→14:42)
[2018-04-15] MEDS ORDERED: Neostigmine Methylsulfate 3 MG/3 ML SYRINGE ONE (15:02)
--- NOTE | 2018-04-15 15:54 | Operative Note ---
Date of procedure: 04/15/18 Pre-op diagnosis: 5.6cm Infrarenal Abdominal Aortic Aneurysm Post-op diagnosis: same Procedure: 1. Introduction of catheter into the aorta via right common femoral artery. 2. Introduction of catheter into the aorta via left common femoral artery. 3. Right femoral vessel exposure for endograft placement. 4. Left femoral vessel exposure for endograft placement. 5. Endograft repair of abdominal aortic aneurysm with Cook Zenith graft and two docking limbs including radiologic supervision and interpretation. Complications: None Anesthesia: GETA Surgeon: Manuel Rouse Was there an ice cream freezer assistant present: No Estimated blood loss (cc): 100 Specimen: None Condition: stable Disposition: same day Procedure in Detail: Indications: The patient is a 72-year-old male with a history of hyperlipidemia , hypertension and tobacco abuse. The patient was found have a 5.6 cm infrarenal abdominal aortic aneurysm. His CT revealed that his aneurysm anatomy was acceptable for endograft placement. Endograft repair was recommended to reduce his risk of rupture. Procedure: The patient was identified and brought to the operating room. The patient was placed in the supine position on the operating room table. After induction of general endotracheal anesthesia, the patient was cleaned and draped in normal sterile fashion. Oblique incisions were made over both groins sharply. Hemostasis was obtained with electrocautery. Using blunt and sharp and electrocautery dissection, the right and left common, deep and superficial femoral arteries were dissected circumferentially and surrounded with Vesseloops. The patient received 5000 units of heparin intravenously. Bilateral femoral punctures with large-bore needles were performed. [email or web address] wires were advanced into the aorta under fluoroscopic view. A pigtail catheter was advanced into the aorta over the right wire. The right wire was removed and a anterior and was then performed for graft sizing. The wire was replaced through the catheter the catheter was was removed. Given the anatomy, the main body was selected to be the right side of the patient. The needles were exchanged for bilateral #8-Mongolian sheaths and a long Pigtail catheter was advanced over the right wire into the aortic arch. The wire was replaced with a Lunderquist wire. The catheter was removed and repositioned in the suprarenal aorta via the left femoral artery. The main body was inserted over the Lunderquist wire with the contralateral limb being in the anterolateral position. An aortogram was then performed at the level of the renal artery. The graft was positioned just below the renal arteries and the first 2 segments were deployed. A repeat aortogram revealed adequate infrarenal placement. The graft was then deployed until the contralateral limb exposed. After confirming adequate infrarenal placement, the suprarenal stent was deployed in the usual fashion. The contralateral limb was then selected with a Bentson wire using a guiding catheter. Intragraft placement of the wire was confirmed by placing the pigtail and spinning it freely as well as injecting a small amount of contrast. An oblique view of the pelvis was performed with contrast to size the left extension limb. The #8-Mongolian sheath was removed and exchanged for the appropriate limb, which was advanced under fluoroscopic view and positioned. It was then expanded and the introducer was removed. The remaining portion of the main body was deployed, the top cap was retrieved and the introducer was removed. Additional heparin was given intravenously during the case to maintain adequate anticoagulation. An oblique view of the right pelvis was performed in a similar fashion to determine the length of the graft on the right. The graft extension was then advanced on the right and positioned in the usual fashion. Upon completion of the graft docking limb extension, a Coda balloon was then advanced into the graft proximal and distal endpoints as well as overlap were expanded with gentle pressure. The balloon was left in the suprarenal position and a Flush catheter was placed in the suprarenal aorta. A Flush completion angiogram revealed no evidence of an endoleak. Tension was applied to the Vesseloops in the groin. The bilateral sheaths were then removed. After confirming hemodynamic stability, the wires were then removed. The bilateral arteriotomies were repaired with a running 6-0 Prolene. Antibiotic irrigation was infused into the groin. Platelet rich and platelet poor plasma were infused into the incisions. The bilateral groins were closed with a single layer of 2-0 Vicryl followed by two layers of 3-0 Vicryl followed by a layer of 3-0 monocryl in the subcuticular region. Sterile dressings were applied. The patient was then extubated and taken to the recovery room in stable condition. Device sizes: 1. Main body: [id number] 2. Left limb: [id number] 3. Right Limb: [id number]
[2018-04-15] MEDS ORDERED: 0.9 % Sodium Chloride 1,000 ML IVC SCH (16:45)
[2018-04-15] MEDS ORDERED: Ondansetron 4 MG/2 ML VIAL IVP PRN (16:45)
[2018-04-15] MEDS ORDERED: OXYCODONE Oral CONC 10 MG/0.5 ML ORAL.SYG SL PRN ×2 (16:45)
[2018-04-15] MEDS ORDERED: Acetaminophen 325 MG TABLET PO PRN (16:45)
[2018-04-15] MEDS ORDERED: Naloxone 0.4 MG/ML INJ IVP PRN (16:45)
[2018-04-15] MEDS ORDERED: *HR* HYDROcodone/Acet 5/325 mg TABLET PO PRN (16:45)
[2018-04-15] MEDS: *HR* Metoprolol 5 MG/5 ML VIAL IVP SCH (17:57)
[2018-04-16] MEDS: *HR* Metoprolol 5 MG/5 ML VIAL IVP SCH ×3 (00:10→11:36)
[2018-04-16 04:45] LABS: Basophils % 0.2 %; Hematocrit 31.3 % (37.5-50.1); Immature Granulocytes % 0.4 % (0-4); Lymphocytes % 8.8 %; Mean Corpuscular HGB Conc 33.2 g/dL (31.6-35.5); Mean Corpuscular Hemoglobin 32.4 pg (28.0-33.3); Mean Corpuscular Volume 97.5 fL (83.0-100.0); Mean Platelet Volume 9.5 fL (9.4-12.4); Monocytes # 0.9 K/mcL (0.0-1.3); Neutrophils # 9.6 K/mcL (1.6-8.9); Platelet Count 205 K/mcL (140-400); Red Blood Count 3.21 M/mcL (4.19-5.50); Red Cell Distribution Width 13.6 % (11.5-14.5); Segmented Neutrophils % 82.6 %
[2018-04-16 04:47] LABS: Hemoglobin 10.4 g/dL (12.9-16.9)
[2018-04-16 05:12] LABS: BUN/Creatinine Ratio 17 (6-26); Blood Urea Nitrogen 18 mg/dL (8-23); Calcium 8.5 mg/dL (8.6-10.3); Carbon Dioxide 23 mEq/L (23-29); Chloride 110 mEq/L (98-107); Glucose 137 mg/dL (70-105); Osmolality,Calculated 294 (280-300); Sodium 140 mEq/L (136-145); eGFR For Non-African Americans > 60 (> 60)
[2018-04-16] MEDS ORDERED: *HR* Heparin 5,000 UNIT/ML VIAL SQ SCH ×2 (06:00)
--- NOTE | 2018-04-16 06:28 | Discharge Summary ---
Date of Encounter: 04/16/08 Time of Encounter: 07:40 - Discharge Diagnosis (1) Abdominal aortic aneurysm Priority: Primary Status: Chronic Comments: The patient is postoperative day #1 after endograft repair of an abdominal aortic aneurysm. He is tolerating a diet well. He denies any significant abdominal flank or back pain. His pain is well-controlled. He will be discharged today. Qualifiers: Presence of rupture: without rupture Qualified Code(s): I71.4 - Abdominal aortic aneurysm, without rupture (2) Hypertension Priority: Secondary Status: Chronic Qualifiers: Hypertension type: essential hypertension Qualified Code(s): I10 - Essential (primary) hypertension (3) Hyperlipidemia Priority: Secondary Status: Chronic Qualifiers: Hyperlipidemia type: mixed hyperlipidemia Qualified Code(s): E78.2 - Mixed hyperlipidemia (4) Tobacco abuse Priority: Secondary Status: Chronic (5) Chronic disease anemia Priority: Secondary Status: Chronic Comments: The patient has chronic anemia with acute expected postoperative blood loss anemia. He is hemodynamically stable without evidence of ongoing blood loss. - Hospital Course Hospital course: Mr. Deluca is a 73 year old male with a history of hyperlipidemia, hypertension and tobacco abuse. The patient was found have a 5.6 cm abdominal aortic aneurysm. He was admitted on 04/15/2018. He underwent endograft repair of his abdominal aortic aneurysm. He tolerated the procedure well. On postoperative day #1 he was alert, comfortable and tolerating a diet. His exam reveals his incisions were healing well. He was discharged home in stable condition on postoperative day #1 without complications. Time spent discussing smoking cessation with patient: 3 to 10 minutes - Time Spent with Patient Total time spent providing and/or coordinating discharge services: - Discharge Medications Prescriptions: OxyCODONE/APAP 5/325 [Percocet 5/325 MG] 1 each PO Q6HR PRN 5 Days #20 tablet PRN Reason: Postoperative pain Home Medications: Aspirin [Lo-Dose Aspirin EC] 81 mg PO DAILY 01/13/18 [History] Lisinopril-HCTZ 20-12.5 [Prinzide 20-12.5] 1 tab PO DAILY 01/13/18 [History] Naproxen Sodium [All Day Pain Relief] 220 mg PO DAILY 01/13/18 [History] Omeprazole [PriLOSEC] 40 mg PO DAILY 01/13/18 [History] Simvastatin [Zocor] 60 mg PO QPM 01/13/18 [History] OxyCODONE/APAP 5/325 [Percocet 5/325 MG] 1 each PO Q6HR PRN 5 Days #20 tablet [Rx] Allergies/Adverse Reactions: 3 Allergy/AdvReac Type Severity Reaction Status Date / Time No Known Allergies Allergy Verified 04/15/18 10:44 Date of admission: 04/15/18 16:39 Primary care physician: PCP [facility] Procedure(s) Performed: Endograft repair of abdominal aortic aneurysm Discharging clinician: Manuel Rouse Anticipated date of discharge: 04/16/18 Exam Vital Signs, Last 4 Hours Temp Pulse Resp BP Pulse Ox 04/16/18 03:41 97.8 F 73 17 105/43 94 - Patient Status Disposition: Home, Self-Care Condition: Good Functional capacity at discharge: independent ambulation Overall status at discharge: patient is back to baseline - Discharge Instructions Instructions: Oxycodone/Acetaminophen (By mouth), Endovascular Abdominal Aortic Aneurysm Repair (DC) Follow Up With: Manuel Rouse MD [Partnered Physician] - 05/25/18 1:00 pm [facility],PCP [Primary Care Provider] - 04/23/18 11:30 am Additional Instructions: May remove bandages and shower on 04/17/2018. Wash wounds gently and pat to dry. Applied dry gauze to wounds daily for 7 days. No tub baths or swimming until 05/20/2018. Call Dr. Rouse at [phone] with questions or concerns. - Diet and Activity Activity: increase activity as tolerated Diet: advance to your usual diet - VTE Documentation of Mechanical Device: Intermittent pneumatic compression device
[2018-04-16] MEDS ORDERED: Aspirin Enteric Coated 81 MG Tablet PO SCH (09:00)
[2018-04-16] MEDS ORDERED: Lisinopril-HCTZ 20-12.5mg TABLET PO SCH (09:00)
[2018-04-16 11:06] VITALS: BP 142/72
[2018-04-16] MEDS ORDERED: Ondansetron ODT 4 MG TAB.RAPDIS SL PRN (11:34)
== END 2018-04-16 14:07 | disposition home or self-care (01) | DRG 269 ==
LOC: SAMDAY 09:45 → 2NNU 16:39
PROVIDERS: ADMIT Surgery; ATTEND Surgery

== ENCOUNTER 2020-09-13 12:30 | Inpatient (IN) ==
[2020-09-13 13:36] LABS: Basophils # 0.1 K/mcL (0.0-0.2); Basophils % 0.9 %; Eosinophils # 0.2 K/mcL (0.0-0.6); Eosinophils % 2.7 %; Hematocrit 35.4 % (37.5-50.1); Hemoglobin 11.3 g/dL (12.9-16.9); Immature Granulocytes % 0.6 % (0-4); Lymphocytes # 0.8 K/mcL (0.6-4.6); Lymphocytes % 11.5 %; Mean Corpuscular HGB Conc 31.9 g/dL (31.6-35.5); Mean Corpuscular Hemoglobin 31.7 pg (28.0-33.3); Mean Corpuscular Volume 99.2 fL (83.0-100.0); Mean Platelet Volume 9.3 fL (9.4-12.4); Monocytes # 0.8 K/mcL (0.0-1.3); Monocytes % 10.9 %; Neutrophils # 5.2 K/mcL (1.6-8.9); Platelet Count 222 K/mcL (140-400); Red Blood Count 3.57 M/mcL (4.19-5.50); Segmented Neutrophils % 73.4 %
[2020-09-13 14:01] LABS: BUN/Creatinine Ratio 23 (6-26); Blood Urea Nitrogen 26 mg/dL (8-23); Carbon Dioxide 27 mEq/L (23-29); Chloride 106 mEq/L (98-107); Glucose 162 mg/dL (70-105); Osmolality,Calculated 300 (280-300); Potassium 3.6 mEq/L (3.5-5.1); Sodium 141 mEq/L (136-145); Troponin I < 0.03 ng/mL (< 0.04); eGFR For African Americans > 60 (> 60); eGFR For Non-African Americans > 60 (> 60)
[2020-09-13] MEDS ORDERED: Ipratropium/Albuterol Neb 3 ML IH ONE (14:04)
[2020-09-13] MEDS ORDERED: Furosemide 40 MG/4 ML VIAL IVP ONE (14:04)
[2020-09-13] MEDS ORDERED: Naloxone 0.4 MG/ML INJ IVP PRN (15:48)
[2020-09-13] MEDS ORDERED: Ondansetron 4 MG/2 ML VIAL IVP PRN (15:55)
[2020-09-13] MEDS ORDERED: Mag Hydrox/Al Hydrox/Simeth 30 ML UDC PO PRN (15:55)
[2020-09-13] MEDS ORDERED: MOM Conc 10 ML UD.LIQ PO PRN (15:55)
[2020-09-13] MEDS ORDERED: Acetaminophen 325 MG TABLET PO PRN (15:55)
[2020-09-13] MEDS: *HR* Heparin 5,000 UNIT/ML VIAL SQ SCH ×2 (16:54→20:44)
[2020-09-13] MEDS ORDERED: Perflutren Lipid Microsphere 1.3 ML in 0.9 % Sodium Chloride 8.7 ML IVP PRN (18:02)
[2020-09-13] MEDS ORDERED: Nicotine 21 MG PATCH.TD24 TD PRN (18:02)
[2020-09-13] MEDS: Furosemide 40 MG/4 ML VIAL IVP SCH (18:22)
[2020-09-13] MEDS ORDERED: D5% in Water 1,000 ML IVC PRN (18:28)
[2020-09-13] MEDS ORDERED: Dextrose Gel 15 GM/37.5 ML TUBE PO PRN ×2 (18:28)
[2020-09-13] MEDS ORDERED: *HR* Dextrose 50 % in Water (Vial) 50 ML VIAL IVP PRN (18:28)
[2020-09-13] MEDS ORDERED: *HR* LORazepam 2 MG/ML VIAL IVP PRN ×3 (18:28)
[2020-09-13 19:29] LABS: ABG Base Excess 5 mEq/L (-2 to 3); ABG HCO3 29 mEq/L (21-27); ABG Oxygen Saturation 100 % (95-98); ABG PCO2 42 mmHg (35-45); ABG PH 7.46 pH Units (7.32-7.45); ABG PO2 208 mmHg (85-104); ABG TCO2 31 mEq/L (20-26)
[2020-09-13 20:18] LABS: Bilirubin,Urine Negative (Negative); Blood,Urine Negative (Negative); Clarity,Urine Clear (Clear); Color,Urine Colorless (Yellow); Glucose,Urine (UA) Normal (Normal); Ketones,Urine Negative (Negative); Leukocyte Esterase,Urine Negative (Negative); Nitrite,Urine Negative (Negative); PH,Urine 6.5 pH Units (5.0-8.0); Protein,Urine Negative (Neg-Trace); Specific Gravity,Urine 1.008 (1.010-1.025); Urobilinogen,Urine Normal (Normal)
[2020-09-13] MEDS: Insulin LISPRO 300 UNITS/3 ML VIAL SUBQ SCH (20:39)
[2020-09-13] MEDS: Thiamine (B-1) 100 MG TABLET PO SCH (20:44)
[2020-09-13] MEDS: traZODone 50 MG TABLET PO SCH (20:44)
[2020-09-14 02:11] LABS: Hematocrit 32.5 % (37.5-50.1); Hemoglobin 10.8 g/dL (12.9-16.9); Mean Corpuscular HGB Conc 33.2 g/dL (31.6-35.5); Mean Corpuscular Hemoglobin 32.8 pg (28.0-33.3); Mean Corpuscular Volume 98.8 fL (83.0-100.0); Mean Platelet Volume 9.3 fL (9.4-12.4); Platelet Count 194 K/mcL (140-400); Red Blood Count 3.29 M/mcL (4.19-5.50); Red Cell Distribution Width 14.8 % (11.5-14.5); White Blood Count 6.3 K/mcL (4.3-11.1)
[2020-09-14 02:20] LABS: BUN/Creatinine Ratio 22 (6-26); Blood Urea Nitrogen 22 mg/dL (8-23); Calcium 8.6 mg/dL (8.6-10.3); Carbon Dioxide 27 mEq/L (23-29); Chloride 107 mEq/L (98-107); Glucose 102 mg/dL (70-105); Magnesium 1.3 mg/dL (1.6-2.6); Osmolality,Calculated 298 (280-300); Potassium 3.3 mEq/L (3.5-5.1); Sodium 142 mEq/L (136-145); eGFR For African Americans > 60 (> 60); eGFR For Non-African Americans > 60 (> 60)
[2020-09-14] MEDS: *HR* Heparin 5,000 UNIT/ML VIAL SQ SCH ×3 (05:42→21:07)
[2020-09-14] MEDS: Insulin LISPRO 300 UNITS/3 ML VIAL SUBQ SCH ×4 (07:55→19:50)
[2020-09-14] MEDS: Folic Acid 1 MG TABLET PO SCH (08:59)
[2020-09-14] MEDS: Thiamine (B-1) 100 MG TABLET PO SCH (08:59)
[2020-09-14] MEDS: Furosemide 40 MG/4 ML VIAL IVP SCH ×2 (09:00→16:08)
[2020-09-14] MEDS: MethylPREDNISolone 40 MG/ML VIAL IVP SCH ×3 (11:41→23:16)
[2020-09-14] MEDS ORDERED: Isovue-370 500 ML BOTTLE IVP ONE (12:45)
[2020-09-14] MEDS: Azithromycin 500 MG in 0.9 % Sodium Chloride 250 ML IVPB SCH (14:42)
[2020-09-14] MEDS: cefTRIAXone 1,000 MG in Water for inj. (sterile) 10 ML IVP SCH (14:44)
[2020-09-14] MEDS ORDERED: Ipratropium/Albuterol Neb 3 ML IH PRN (18:07)
[2020-09-14] MEDS: traZODone 50 MG TABLET PO SCH (19:48)
[2020-09-14] MEDS: Budesonide/Formoterol 80/4.5 1 PUFF INH IH SCH ×2 (21:12→22:49)
[2020-09-15 04:09] LABS: Hematocrit 35.9 % (37.5-50.1); Hemoglobin 11.8 g/dL (12.9-16.9); Mean Corpuscular HGB Conc 32.9 g/dL (31.6-35.5); Mean Corpuscular Hemoglobin 32.8 pg (28.0-33.3); Mean Corpuscular Volume 99.7 fL (83.0-100.0); Mean Platelet Volume 9.4 fL (9.4-12.4); Platelet Count 200 K/mcL (140-400); Red Cell Distribution Width 14.6 % (11.5-14.5)
[2020-09-15 04:23] LABS: BUN/Creatinine Ratio 28 (6-26); Blood Urea Nitrogen 26 mg/dL (8-23); Calcium 8.9 mg/dL (8.6-10.3); Carbon Dioxide 29 mEq/L (23-29); Chloride 101 mEq/L (98-107); Glucose 222 mg/dL (70-105); Osmolality,Calculated 294 (280-300); Potassium 3.8 mEq/L (3.5-5.1); Sodium 136 mEq/L (136-145); eGFR For African Americans > 60 (> 60); eGFR For Non-African Americans > 60 (> 60)
[2020-09-15 05:26] LABS: Magnesium 1.9 mg/dL (1.6-2.6)
[2020-09-15] MEDS: *HR* Heparin 5,000 UNIT/ML VIAL SQ SCH ×3 (05:34→22:27)
[2020-09-15] MEDS: Insulin LISPRO 300 UNITS/3 ML VIAL SUBQ SCH ×4 (07:31→20:06)
[2020-09-15] MEDS: MethylPREDNISolone 40 MG/ML VIAL IVP SCH ×2 (07:35→18:00)
[2020-09-15] MEDS: Furosemide 40 MG/4 ML VIAL IVP SCH ×2 (07:35→15:41)
[2020-09-15] MEDS: Thiamine (B-1) 100 MG TABLET PO SCH (07:48)
[2020-09-15] MEDS: cefTRIAXone 1,000 MG in Water for inj. (sterile) 10 ML IVP SCH (07:48)
[2020-09-15] MEDS: Folic Acid 1 MG TABLET PO SCH (07:48)
[2020-09-15] MEDS: Budesonide/Formoterol 80/4.5 1 PUFF INH IH SCH ×2 (10:10→19:58)
[2020-09-15] MEDS ORDERED: NICOTINE POLACRILEX 4 MG PO PRN (13:41)
[2020-09-15] MEDS: Artificial Tears SOLN 15 ML BOTTLE BOTH EYES SCH ×2 (14:39→20:05)
[2020-09-15] MEDS: Azithromycin 500 MG in 0.9 % Sodium Chloride 250 ML IVPB SCH (14:56)
[2020-09-15] MEDS: Lidocaine 5% OINT 35 APPL/35.44 GM TUBE TP SCH (20:04)
[2020-09-15] MEDS: Latanoprost 2.5 ML BOTTLE BOTH EYES SCH (20:04)
[2020-09-15] MEDS: traZODone 50 MG TABLET PO SCH (20:04)
[2020-09-16] MEDS: MethylPREDNISolone 40 MG/ML VIAL IVP SCH ×2 (05:40→18:10)
[2020-09-16] MEDS: *HR* Heparin 5,000 UNIT/ML VIAL SQ SCH ×3 (05:41→21:31)
[2020-09-16 05:57] LABS: Hematocrit 36.3 % (37.5-50.1); Hemoglobin 11.7 g/dL (12.9-16.9); Mean Corpuscular HGB Conc 32.2 g/dL (31.6-35.5); Mean Corpuscular Hemoglobin 32.1 pg (28.0-33.3); Mean Corpuscular Volume 99.7 fL (83.0-100.0); Mean Platelet Volume 9.6 fL (9.4-12.4); Platelet Count 205 K/mcL (140-400); Red Blood Count 3.64 M/mcL (4.19-5.50); Red Cell Distribution Width 14.9 % (11.5-14.5)
[2020-09-16 05:59] LABS: White Blood Count 16.3 K/mcL (4.3-11.1)
[2020-09-16 06:19] LABS: BUN/Creatinine Ratio 31 (6-26); Blood Urea Nitrogen 33 mg/dL (8-23); Calcium 9.4 mg/dL (8.6-10.3); Carbon Dioxide 31 mEq/L (23-29); Chloride 101 mEq/L (98-107); Glucose 295 mg/dL (70-105); Magnesium 2.1 mg/dL (1.6-2.6); Osmolality,Calculated 308 (280-300); Sodium 140 mEq/L (136-145); eGFR For African Americans > 60 (> 60); eGFR For Non-African Americans > 60 (> 60)
[2020-09-16] MEDS: Furosemide 40 MG/4 ML VIAL IVP SCH ×2 (07:32→18:10)
[2020-09-16] MEDS: Insulin LISPRO 300 UNITS/3 ML VIAL SUBQ SCH ×4 (07:33→20:00)
[2020-09-16] MEDS: Artificial Tears SOLN 15 ML BOTTLE BOTH EYES SCH ×3 (07:34→20:00)
[2020-09-16] MEDS: Aspirin Enteric Coated 81 MG Tablet PO SCH (07:49)
[2020-09-16] MEDS: Metoprolol XL (24 HR) Succ 25 MG TAB.ER.24H PO SCH (07:49)
[2020-09-16] MEDS: Folic Acid 1 MG TABLET PO SCH (07:49)
[2020-09-16] MEDS: cefTRIAXone 1,000 MG in Water for inj. (sterile) 10 ML IVP SCH (07:49)
[2020-09-16] MEDS: Thiamine (B-1) 100 MG TABLET PO SCH (07:50)
[2020-09-16] MEDS: lisinopriL 20 MG TABLET PO SCH (07:50)
[2020-09-16] MEDS: Budesonide/Formoterol 80/4.5 1 PUFF INH IH SCH ×2 (09:34→22:07)
[2020-09-16] MEDS: Azithromycin 500 MG in 0.9 % Sodium Chloride 250 ML IVPB SCH (14:02)
[2020-09-16] MEDS: traZODone 50 MG TABLET PO SCH (19:59)
[2020-09-16] MEDS: Latanoprost 2.5 ML BOTTLE BOTH EYES SCH (20:01)
[2020-09-16] MEDS: Lidocaine 5% OINT 35 APPL/35.44 GM TUBE TP SCH (20:01)
[2020-09-17] MEDS: MethylPREDNISolone 40 MG/ML VIAL IVP SCH (05:18)
[2020-09-17] MEDS: *HR* Heparin 5,000 UNIT/ML VIAL SQ SCH (05:18)
[2020-09-17 07:19] LABS: Hemoglobin 11.3 g/dL (12.9-16.9); Mean Corpuscular HGB Conc 32.3 g/dL (31.6-35.5); Mean Corpuscular Hemoglobin 32.8 pg (28.0-33.3); Mean Corpuscular Volume 101.4 fL (83.0-100.0); Mean Platelet Volume 9.7 fL (9.4-12.4); Platelet Count 189 K/mcL (140-400); Red Blood Count 3.45 M/mcL (4.19-5.50); Red Cell Distribution Width 14.9 % (11.5-14.5); White Blood Count 14.2 K/mcL (4.3-11.1)
[2020-09-17 07:39] LABS: BUN/Creatinine Ratio 32 (6-26); Blood Urea Nitrogen 30 mg/dL (8-23); Calcium 8.9 mg/dL (8.6-10.3); Carbon Dioxide 32 mEq/L (23-29); Chloride 97 mEq/L (98-107); Glucose 280 mg/dL (70-105); Magnesium 2.1 mg/dL (1.6-2.6); Osmolality,Calculated 296 (280-300); Potassium 3.8 mEq/L (3.5-5.1); Sodium 135 mEq/L (136-145); eGFR For African Americans > 60 (> 60); eGFR For Non-African Americans > 60 (> 60)
[2020-09-17] MEDS: Budesonide/Formoterol 80/4.5 1 PUFF INH IH SCH (07:51)
[2020-09-17] MEDS: lisinopriL 20 MG TABLET PO SCH (08:16)
[2020-09-17] MEDS: Thiamine (B-1) 100 MG TABLET PO SCH (08:16)
[2020-09-17] MEDS: Furosemide 40 MG/4 ML VIAL IVP SCH (08:16)
[2020-09-17] MEDS: Insulin LISPRO 300 UNITS/3 ML VIAL SUBQ SCH ×2 (08:17→12:17)
[2020-09-17] MEDS: Folic Acid 1 MG TABLET PO SCH (08:17)
[2020-09-17] MEDS: Aspirin Enteric Coated 81 MG Tablet PO SCH (08:17)
[2020-09-17] MEDS: Artificial Tears SOLN 15 ML BOTTLE BOTH EYES SCH (08:17)
[2020-09-17] MEDS: Metoprolol XL (24 HR) Succ 25 MG TAB.ER.24H PO SCH (08:17)
[2020-09-17] MEDS: cefTRIAXone 1,000 MG in Water for inj. (sterile) 10 ML IVP SCH (08:47)
[2020-09-17 13:12] VITALS: BP 140/82
== END 2020-09-17 16:33 | disposition home or self-care (01) | DRG 280 ==
LOC: EMEROOARM 12:30 → 3ANU 17:52 → SUATTDRO 17:52 → 3ANU 18:43 → ICNU 19:57 → CDU 09-16 17:52
PROVIDERS: ADMIT Internal Medicine; ATTEND Internal Medicine

== ENCOUNTER 2021-01-08 06:26 | Inpatient (IN) ==
[2021-01-08] MEDS ORDERED: 0.9 % Sodium Chloride 1,000 ML ONE ×2 (06:41→06:58)
[2021-01-08] MEDS ORDERED: *HR* Heparin 10,000 UNIT/10 ML VIAL ONE ×2 (06:57→07:15)
[2021-01-08] MEDS ORDERED: Protamine Sulfate 50 MG/5 ML VIAL IVP ONE (06:57)
[2021-01-08] MEDS ORDERED: Heparin 1,000 UNITS/500 mL 2,000 ML ONE (06:58)
[2021-01-08] MEDS ORDERED: ISOVUE-370 200 ML INFUS..BTL ONE (06:58)
[2021-01-08] MEDS ORDERED: 0.9 % Sodium Chloride 1,000 ML IVC SCH (07:45)
[2021-01-08] MEDS ORDERED: *HR* FentaNYL (PF) 100 MCG/2 ML VIAL ONE (08:31)
[2021-01-08] MEDS ORDERED: Perflutren Lipid Microsphere 1.3 ML in 0.9 % Sodium Chloride 8.7 ML IVP PRN ×2 (08:36→10:13)
[2021-01-08] MEDS ORDERED: Ipratropium/Albuterol Neb 3 ML IH PRN (10:17)
[2021-01-08] MEDS ORDERED: Lidocaine HCL 4 ML Topical Solution (Laryng-O-Jet Kit Sterile Pak) TP ONE (10:26)
[2021-01-08] MEDS ORDERED: Ondansetron 4 MG/2 ML VIAL ONE (10:26)
[2021-01-08] MEDS ORDERED: *HR* Succinylcholine 200 MG/10 ML VIAL IVP ONE ×2 (10:26→11:14)
[2021-01-08] MEDS ORDERED: Lidocaine -MPF 2% 2 ML VIAL ONE (10:26)
[2021-01-08] MEDS ORDERED: *HR* Rocuronium Bromide 50 MG/5 ML VIAL ONE (10:26)
[2021-01-08] MEDS ORDERED: *HR* Propofol 500 MG/50 ML BOTTLE IVP ONE (11:14)
[2021-01-08] MEDS ORDERED: Lidocaine -MPF 2% 5 ML VIAL SQ ONE (11:14)
[2021-01-08] MEDS ORDERED: Lidocaine -MPF 4% 5 ML AMPUL TP ONE (11:14)
[2021-01-08] MEDS: Artificial Tears SOLN 15 ML BOTTLE BOTH EYES SCH ×2 (16:55→20:54)
[2021-01-08] MEDS ORDERED: Furosemide 40 MG TABLET PO SCH (17:00)
[2021-01-08] MEDS: Budesonide/Formoterol 80/4.5 1 PUFF INH IH SCH (20:18)
[2021-01-08] MEDS: Apixaban 5 MG TABLET PO SCH (20:54)
[2021-01-08] MEDS ORDERED: Latanoprost 2.5 ML BOTTLE BOTH EYES SCH (21:00)
[2021-01-08] MEDS ORDERED: Melatonin 3 MG TABLET PO SCH (21:00)
[2021-01-09 02:09] LABS: Basophils % 0.3 %; Hematocrit 32.3 % (37.5-50.1); Hemoglobin 10.7 g/dL (12.9-16.9); Immature Granulocytes % 2.2 % (0-4); Lymphocytes # 0.5 K/mcL (0.6-4.6); Lymphocytes % 4.3 %; Mean Corpuscular HGB Conc 33.1 g/dL (31.6-35.5); Mean Corpuscular Hemoglobin 32.5 pg (28.0-33.3); Mean Corpuscular Volume 98.2 fL (83.0-100.0); Mean Platelet Volume 9.6 fL (9.4-12.4); Monocytes % 8.1 %; Neutrophils # 10.7 K/mcL (1.6-8.9); Platelet Count 211 K/mcL (140-400); Red Blood Count 3.29 M/mcL (4.19-5.50); Red Cell Distribution Width 13.2 % (11.5-14.5); Segmented Neutrophils % 85.1 %; White Blood Count 12.5 K/mcL (4.3-11.1)
[2021-01-09 02:16] LABS: INR 1.2; Prothrombin Time 13.9 Seconds (9.4-12.1)
[2021-01-09 02:25] LABS: BUN/Creatinine Ratio 37 (6-26); Blood Urea Nitrogen 46 mg/dL (8-23); Calcium 8.8 mg/dL (8.6-10.3); Carbon Dioxide 26 mEq/L (23-29); Chloride 98 mEq/L (98-107); Glucose 449 mg/dL (70-105); Osmolality,Calculated 307 (280-300); Potassium 4.3 mEq/L (3.5-5.1); Sodium 133 mEq/L (136-145); eGFR For African Americans > 60 (> 60); eGFR For Non-African Americans 57 (> 60)
[2021-01-09 07:16] VITALS: BP 146/81
[2021-01-09] MEDS: Apixaban 5 MG TABLET PO SCH (07:50)
[2021-01-09] MEDS: Artificial Tears SOLN 15 ML BOTTLE BOTH EYES SCH (07:52)
[2021-01-09] MEDS ORDERED: Furosemide 40 MG TABLET PO SCH (08:00)
[2021-01-09] MEDS ORDERED: Metoprolol XL (24 HR) Succ 25 MG TAB.ER.24H PO SCH (09:00)
[2021-01-09] MEDS ORDERED: Cholecalciferol (D-3) 1,000 UNIT (25MCG) TABLET PO SCH (09:00)
[2021-01-09] MEDS ORDERED: lisinopriL 20 MG TABLET PO SCH (09:00)
[2021-01-09] MEDS ORDERED: Aspirin Enteric Coated 81 MG Tablet PO SCH (09:00)
[2021-01-09] MEDS: Budesonide/Formoterol 80/4.5 1 PUFF INH IH SCH (10:34)
== END 2021-01-09 11:15 | disposition home or self-care (01) | DRG 274 ==
LOC: INVDIALAB 06:26 → 2NENU 14:30
PROVIDERS: ADMIT Internal Medicine Cardiovascular Disease; ATTEND Internal Medicine Cardiovascular Disease